=== PATIENT | female | born 1985 | race Caucasian/White ===

== ENCOUNTER 2017-01-23 09:30 | Observation (INO) | payer MEDICAID ==
[2017-01-23 09:55] LABS: CHLORIDE,CL 104 mEq/L (98-106); SODIUM,NA 138 mEq/L (136-145)
[2017-01-23] MEDS ORDERED: Acetaminophen 325 MG Tab PO PRN (11:48)
[2017-01-23] MEDS ORDERED: Ondansetron 4 MG Tab.DIS PO PRN (11:48)
[2017-01-23] MEDS ORDERED: cefTRIAXone 1 GM Vial IV ONE (11:50)
[2017-01-23] MEDS: Sodium Chloride 0.9% 1,000 ML IV SCH ×2 (12:19→20:21)
[2017-01-23] MEDS: PRENATAL PO SCH (19:54)
[2017-01-24] MEDS: Sodium Chloride 0.9% 1,000 ML IV SCH ×3 (05:15→22:55)
[2017-01-24] MEDS ORDERED: cefTRIAXone 1 GM Vial IVPUSH SCH (08:00)
--- NOTE | 2017-01-24 11:48 | PN ---
DATE: 01/24/2017 S: Yovany was admitted yesterday for multiple complaints one including groin pain. She appeared to be clinically dehydrated. She was having some nonspecific shortness of breath and not necessarily exertional. No chest pain associated with this. Ultimately, lab work and ultrasound of her legs were fine other than elevated D-dimer likely related to her gestation. We elected to put her in the hospital for IV fluids and monitoring. The patient has had stable vital signs since admission. She has had no fevers or tachycardia. Blood pressures are fine. She is saturating at 99% to 100% on room air. She does complain more of her shortness of breath at this time. The groin pain is really unchanged. It seems healing when she moves or weight bears and it does not appear to be abdominal. She does state that when I arrived this morning that she has had poor movement throughout the day and does not remember the baby moving since yesterday. O: VITAL SIGNS: Today, shows a temp to be 98.2, pulse 86, BP 116/65, and sat 100%. HEENT: Grossly benign. NECK: Her neck veins are not distended. Trachea is midline. LUNGS: Her lung sounds appear to be clear without rales, rhonchi, or wheeze. CARDIAC: Tones are regular. ABDOMEN: Gravid, soft, and really nontender to palpation. I could Doppler her heart tones around 150 to 154 beats per minute. Bowel sounds are fine certainly no guarding, rebound, or rigidity. Groin tenderness remains in the inguinal area to palpation and with certain range of motions to extreme. EXTREMITIES: Again, no peripheral edema is seen in the lower leg. ASSESSMENT: 1. INTRAUTERINE AT APPROXIMATELY 26 WEEKS. 2. POOR MOVEMENT. 3. GROIN PAIN, QUESTIONABLE STRAIN. 4. SHORTNESS OF BREATH. P: The patient will continue on her IV Rocephin. I am going to get a complete OB ultrasound at this time to verify status. I will have a conversation with OB about the patient's groin pain and the shortness of breath. Obviously given the decreased tidal volume, we expect some of this during but given the patient's simultaneous groin pain, I will see if there is anything further obstetrics we recommend in this regard. PATRICIO/MAYO /[id number]
[2017-01-24] MEDS: PRENATAL PO SCH (20:05)
[2017-01-25 08:10] VITALS: BP 110/62
--- NOTE | 2017-01-29 07:56 | DISCH ---
ADMISSION DIAGNOSES: 1. Intrauterine at 25-1/2 weeks. 2. Groin pain. 3. Shortness of breath. 4. Poor movement. DISCHARGE DIAGNOSIS: 1. INTRAUTERINE AT 25-1/2 WEEKS. 2. GROIN PAIN. 3. SHORTNESS OF BREATH. 4. POOR MOVEMENT. HISTORY: Yovany is a pleasant 31-year-old, approximately 25-1/2 weeks gestation. She presented with just kind of lassitude-malaise and some groin pain worse when she turns her leg or moves, does not hurt at all if she is immobile or off her feet. She just had been feeling kind of down with maybe some poor oral intake. She thought maybe she was little more short of breath than normal and she actually felt like she had not had as much movement. We elected to put her in the hospital after lab work was essentially unremarkable. Exam confirmed a palpable tenderness in the left groin, worse with range of motion to the extremes consistent with likely musculoskeletal etiology. HOSPITAL COURSE: The patient was admitted, given IV antibiotics in the form of Rocephin. Pending results of the urine culture, she did have some white blood cells in her urine sample, that culture ultimately was negative and Rocephin will be discontinued. She did admit after admission to be poor movement, we did an ultrasound which confirmed a viable fetus appropriate for age without any abnormalities. During Yovany's stay, she really did fine. The groin pain is still present if she tries to move or turn her leg to the extreme, but for the most part she denies any chest pain or shortness of breath. Her vitals have been fine. She has not had any elevated temps. No tachypnea and her sats have been 99-100% on room air on her entire stay. At this time, she feels comfortable, going home with followup in my office next week. COMPLICATIONS: During the stay were none. CONSULTATIONS: None. PROCEDURES: OB ultrasound. DISPOSITION: Discharged home. TRELL /[id number]
== END 2017-01-25 09:30 | disposition home or self-care (01) ==
LOC: CC.FCMC 09:30 → CC.MS 09:30 → UNDOADMOB 11:32 → CC.MS 11:48
PROVIDERS: ADMIT Family Medicine; ATTEND Family Medicine
DX: O36.8121 Decreased fetal movements, second trimester, fetus 1 (principal); R10.30 Lower abdominal pain, unspecified; R06.02 Shortness of breath; F32.9 Major depressive disorder, single episode, unspecified; O26.892 Other specified pregnancy related conditions, second trimester; Z3A.01 Less than 8 weeks gestation of pregnancy; Z79.899 Other long term (current) drug therapy; O99.332 Smoking (tobacco) complicating pregnancy, second trimester
CPT/HCPCS: 36415; 76805; 80053; 81001; 85025; 85379; 86140; 87045; 87046; 87086; 93971; 96361; 96374; 96376; A9270; G0378; J0696; J7030

== ENCOUNTER 2022-04-24 14:45 | Inpatient (IN) | payer BC ==
[~2022-04-24 14:45] MED LIST: Sodium Chloride 0.9% 1,000 ML IV ONE; cefTRIAXone 1 GM Vial IVPUSH ONE; methylPREDNISolone Sodium Succinate 125 MG/2 ML SDV IVPUSH ONE
[2022-04-24] MEDS ORDERED: Iopamidol 755 Mg/ML 100 ML Bottle IV ONE (16:08)
[2022-04-24] MEDS ORDERED: Ketorolac 30 MG/ML SDV IVPUSH ONE (16:43)
[2022-04-24] MEDS ORDERED: cefTRIAXone 1 GM Vial IVPUSH ONE (16:45)
[2022-04-24] MEDS ORDERED: metroNIDAZOLE/Normal Saline 500 MG/100 ML Premix Bag IV ONE (16:49)
[2022-04-24] MEDS ORDERED: Sodium Chloride 0.9% 1,000 ML IV ONE (16:49)
[2022-04-24] MEDS ORDERED: Dexamethasone 4 MG/ML SDV IVPUSH ONE (20:00)
[2022-04-25] MEDS ORDERED: Dexamethasone 4 MG/ML SDV IVPUSH ONE (08:20)
[2022-04-25] MEDS ORDERED: cefTRIAXone 2 GM Vial IV ONE (08:22)
[2022-04-25] MEDS ORDERED: metroNIDAZOLE/Normal Saline 500 MG/100 ML Premix Bag IV ONE ×3 (08:50→22:14)
[2022-04-25] MEDS ORDERED: Ketorolac 30 MG/ML SDV IVPUSH ONE (10:46)
[2022-04-25] MEDS ORDERED: Sodium Chloride 0.9% 1,000 ML IV ONE (14:30)
[2022-05-17 18:59] LABS: CHLORIDE,CL 104 mEq/L (98-106); ESTIMATED GFR 115 mL/min (>=60); SODIUM,NA 140 mEq/L (136-145)
== END 2022-04-27 12:26 | disposition home or self-care (01) | DRG 113 ==
LOC: CC.ACU 14:45 → CC.ZCENSUS 15:27 → OBSVTOIN 16:00 → CC.ZCENSUS 16:00 → UNDOADMOB 16:00
PROVIDERS: ADMIT Nurse Practitioner Family; ATTEND Family Medicine
DX: J36 Peritonsillar abscess (principal); Z20.822 Contact with and (suspected) exposure to COVID-19
CPT/HCPCS: 36415; 70491; 71046; 80053; 81001; 85025; 86308; 87086; 87088; 87186; 87430; J0696; J1100; J1885; J2930; J3490; J7030; Q9967; U0002